=== PATIENT | female | born 1985 ===

== ENCOUNTER 2025-06-20 11:36 | Outpatient (CLI) | payer OTHER ==
[~2025-06-20 11:36] MED LIST: ALDOMET250 MG PO; CODE1TAB37 PO; PRENATAL TABLET1 TA1 PO; VALTREX1000 MG PO
== END 2025-06-20 11:45 | disposition home or self-care (01) ==
LOC: EDBD 11:36 → PRENATAL 11:36
PROVIDERS: ATTEND Obstetrics & Gynecology Maternal & Fetal Medicine
DX: O26.849 Uterine size-date discrepancy, unspecified trimester (principal); O28.5 Abnormal chromosomal and genetic finding on antenatal screening of mother; O09.529 Supervision of elderly multigravida, unspecified trimester; O10.019 Pre-existing essential hypertension complicating pregnancy, unspecified trimester; Z3A.16 16 weeks gestation of pregnancy

== ENCOUNTER 2025-06-20 12:16 | Outpatient (CLI) | payer OTHER | END 2025-06-20 12:20 | disposition home or self-care (01) | LOC: LAB 12:16 → EDBD 12:16 → LAB 12:20 | PROVIDERS: ATTEND Obstetrics & Gynecology | DX: Z00.00 Encounter for general adult medical examination without abnormal findings (principal) ==

== ENCOUNTER → 2025-07-20 07:34 | Outpatient (CLI) | payer OTHER | END | disposition home or self-care (01) | LOC: PRENATAL 07:34 | PROVIDERS: ATTEND Obstetrics & Gynecology Maternal & Fetal Medicine | DX: O44.00 Complete placenta previa NOS or without hemorrhage, unspecified trimester (principal); O26.849 Uterine size-date discrepancy, unspecified trimester; O28.5 Abnormal chromosomal and genetic finding on antenatal screening of mother; O09.529 Supervision of elderly multigravida, unspecified trimester; O10.019 Pre-existing essential hypertension complicating pregnancy, unspecified trimester; Z3A.20 20 weeks gestation of pregnancy ==

== ENCOUNTER 2025-09-13 12:25 | Outpatient (CLI) | payer OTHER | END 2025-09-13 12:26 | disposition home or self-care (01) | LOC: PRENATAL 12:25 | PROVIDERS: ATTEND Obstetrics & Gynecology Maternal & Fetal Medicine | DX: O26.843 Uterine size-date discrepancy, third trimester (principal); O28.5 Abnormal chromosomal and genetic finding on antenatal screening of mother; O09.523 Supervision of elderly multigravida, third trimester; O10.013 Pre-existing essential hypertension complicating pregnancy, third trimester; O99.013 Anemia complicating pregnancy, third trimester; Z3A.28 28 weeks gestation of pregnancy ==